=== PATIENT | female | born 2005 | race Caucasian/White ===

== ENCOUNTER 2024-11-21 13:30 | Outpatient (AMB) | payer OTHER, SELFPAY ==
--- NOTE | 2024-11-21 13:40 | A.OFFPC_ITS ---
Vital Signs 11/21/24 13:41 Height 5 ft 0.04 in Weight 127 lb 6 oz BMI 24.8 BP 100/60 Blood Pressure Location Lt brachial Position Sitting Pulse 116 H Pulse Source Pulse Oximeter Temp 98 F Temp Source Temporal Artery Scan Pulse Oximetry (%) 97 Oxygen Delivery Method Room Air Intake Visit Reasons: establish care Intake Note: Patient is a new patient here to establish care for Anxiety, Depression, Bipolar. Transferring care from [facility]. Medical records have been requested and have not received. Gizzard Skin Remover Required: No Compensation And Hris Analyst: Present Accompanied by: Friend Allergies No Known Allergies Allergy (Verified 11/21/24 14:23) Medication List - Last Reconciled 11/21/24 by Lashonda Davis PA-C buspirone 5 mg PO DAILY lamotrigine 100 mg PO DAILY lurasidone 20 mg PO DAILY mirtazapine 22.5 mg PO DAILY Tobacco use date assessed: 11/21/24 Dental Screening Dental Screen Date: 11/21/24 Did you have a dental visit in the last 12 months?: No Did you have a dental problem in the last 6 months where you did not have access to dental care?: No Was dental information given to patient?: No HPI establish care HPI Details 19-year-old female coming to the office for the 1st time. Presenting with influenza symptoms and dehydration risk. Reports feelings of extreme fatigue and dizziness without fainting and significant nausea in the last 24 hours, linking it to possible dehydration. Reports diarrhea for the last 24-48 hours and a sensation of excessive heat throughout her body. Reveals limited oral intake over the past day. [facility] Surgical History No pertinent past surgical history Family History Father Cancer Other Mental health disorder Substance use disorder Social History Housing: House Alcohol intake: never Patient Tobacco Use Status: Former Tobacco user (2023) e-Cigarette/Vaping Use: Former Use (2023) Second Hand Smoke Exposure: No service: No Current occupational status: student Cognitive needs: No Hearing needs: No Vision needs: Yes (Glasses) Questionnaire PHQ-9 Over the last 2 weeks, how often have you been bothered by any of the following problems? 1. Little interest or pleasure in doing things: more than half the days 2. Feeling down, depressed, or hopeless: more than half the days 3. Trouble falling or staying asleep, or sleeping too much: nearly every day 4. Feeling tired or having little energy: nearly every day 5. Poor appetite or overeating: nearly every day 6. Feeling bad about yourself - or that you are a failure or have let yourself or your family down: not at all 7. Trouble concentrating on things, such as reading the newspaper or watching television: not at all 8. Moving or speaking so slowly that other people could have noticed. Or the opposite - being so fidgety or restless that you have been moving around a lot more than usual: not at all 9. Thoughts that you would be better off or of hurting yourself in some way: not at all Total score: 13 Depression Screening Interpretation: Positive Depression Screening Done: Yes Source: Developed by Drs. Karl Calles, Citlali Hernandez, Hernandez Gregg and colleagues, with an educational anna from [employer]. Thrive Questionnaire Date Thrive assessed: 11/21/24 I am a: Patient What is your living situation today?: I have a steady place to live Within the past 12 months, did the food you bought not last and you didn't have the money to get more?: Never true Within the past 12 months, did you worry whether your food would run out before you got money to buy more?: Never true Do you have trouble paying for medicines?: No Do you have trouble getting transportation to medical appointments?: No Do you have trouble paying your heating and electricity bill?: No Do you have trouble taking care of your child, family member or friend?: No Do you have trouble with day-to-day activities such as bathing, preparing meals, shopping, managing finances, etc.?: No Are you currently unemployed and looking for a job?: No Are you interested in more education?: Yes Please select the resources that you would like help with: None Currently or been in a relationship where the following occur: No concerns reported THRIVE Score: 0 AUDIT C Alcohol Use Questionnaire (AUDIT-C) 1. How often do you have a drink containing alcohol?: Never Total Score: 0 MARK-7 AMB Questionnaire MARK-7 Date MARK - 7 assessed: 11/21/24 Feeling nervous, anxious, or on edge: 3 = Nearly every day Not being able to stop or control worryin = Nearly every day Worrying too much about different things: 3 = Nearly every day Trouble relaxin = Nearly every day Being so restless that it is hard to sit still: 1 = Several days Becoming easily annoyed or irritable: 3 = Nearly every day Feeling afraid as if something awful might happen: 3 = Nearly every day Total MARK-7 score (0-4 normal; 5-9 mild; 10-14 moderate; 15-21 severe): 19 Source: Developed by Drs. Karl Calles, Citlali Hernandez, Hernandez Gregg and colleagues, with an educational anna from [employer]. Review of Systems Const Reports body aches, Reports chills, Reports fever(s), Reports headache(s) and Denies poor appetite Eyes Reports no additional complaints ENT Denies dysphagia, Reports dizziness, Reports headache(s) and Denies odynophagia Card Denies chest pain, Denies syncope, Reports lightheadedness and Denies dyspnea Resp Denies cough and Denies dyspnea GI Denies abdominal pain, Denies constipation, Denies dysphagia, Reports diarrhea, Reports nausea, Denies odynophagia and Denies vomiting Reports no additional complaints Musc Reports no additional complaints and Denies abnormal gait Skin/Breast Reports system reviewed and no additional complaints, except as documented Neuro Denies abnormal gait, Reports dizziness, Denies syncope and Reports headache(s) Psych Reports no additional complaints Physical exam (Primary Care) Vital Signs: Last Vital Signs Temp 98 F 11/21/24 13:41 Pulse 116 H 11/21/24 13:41 BP 100/60 11/21/24 13:41 Pulse Ox 97 11/21/24 13:41 Oxygen Delivery Method Room Air 11/21/24 13:41 BMI result Body Mass Index 24.8 Tobacco/Smoking Status: Tobacco use Status Tobacco use date assessed 11/21/24 11/21/24 13:45 Patient Tobacco Use Status Former Tobacco user (2023) 11/21/24 13:55 e-Cigarette/Vaping Use Former Use (2023) 11/21/24 13:55 PHQ-9: PHQ-9 Score PHQ-9: Total score 13 11/21/24 13:41 Depression Screening Interpretation: Positive Thrive Assessment: Date of Thrive Assessment Date Thrive assessed 11/21/24 11/21/24 13:41 Currently or been in a relationship where the following occur: No concerns reported Const General: cooperative, healthy appearing, comfortable and no acute distress Orientation/consciousness: patient oriented x3 HENMT Head: Yes normocephalic Ears: hearing grossly normal bilaterally General nose exam: Normal external nose present Eyes General: appearance normal, both eyes and all related structures Conjunctivae: conjunctivae normal Neck Neck: Yes full ROM and Yes no lymphadenopathy Resp Effort & Inspection: normal respiratory effort Auscultation: clear to auscultation bilaterally, no crackles, no rales, no rhonchi and no wheezes Cardio Rate: regular rate Rhythm: regular rhythm Skin General skin exam: no rashes or lesions noted Neuro General: patient oriented x3 Gait exam (Neuro): Normal gait present Extrem General: Yes normal to inspection, Yes full ROM and No edema Psych Affect: normal affect Attitude: cooperative Insight: Good insight present (Psych) Judgement: Good judgement present (Psych) Coding Level of Care Code New Pt Level 4 (15867) Diagnoses Depression F32.A Anxiety F41.9 Influenza J11.1 Assessment & Plan Assessment & Plan (1) Depression: Code(s): F32.A - Depression, unspecified Category: Medical Plan: Patient on several medications for anxiety at this time. Plan to discuss further management symptomatology at next visit. (2) Anxiety: Code(s): F41.9 - Anxiety disorder, unspecified Category: Medical Plan: Patient on several medications for anxiety at this time. Plan to discuss further management symptomatology at next visit. (3) Influenza: Code(s): J11.1 - Influenza due to unidentified influenza virus with other respiratory manifestations Category: Medical Plan: The patient is advised for immediate evaluation in the emergency department due to potential dehydration resulting from influenza and associated symptoms. Intravenous fluids may be necessary given insufficient oral intake and ongoing nausea and diarrhea. A blood test for electrolyte imbalance is recommended. She was instructed to reschedule her appointment and provided with specific instructions for the emergency care process. Cautious use of Tylenol is advised, and she is encouraged to utilize nausea bags if needed. Arrangements will be made for rescheduling her initial appointment upon improvement of her acute condition. Plan I discussed with the patient today the need for emergency department evaluation as she is likely dehydrated. We will plan to reschedule the new patient visit as patient is feeling very weak and fatigued and would also like to reschedule at this time. This note was constructed using voice recognition software. While every effort has been made to ensure accuracy and plate mill mill hand, still areas may have been included sometimes these areas may affect the content or meeting of the given symptoms. Total time spent caring for the patient today was 30 minutes. This includes time spent before the visit reviewing the chart, time spent during the visit, and time spent after the visit and documentation. Patient was informed and verbally consented to the use of an ambient scribe for clinic note documentation during this visit.
[2024-11-21 13:41] VITALS: BP 100/60; PULSE 116; TEMP 36.6; O2SAT 97; BMI 24.8
--- OUTSIDE RECORDS SUMMARY | 2024-11-21 15:06 | XMS_ITS | Data Portability ---
Author Organization JUST[facility] [address] Address [address] [place] [address] Assessment No assessment recorded. Plan of Treatment Reminders Order Date Submit Date Provider Last Modified By Organization Details Last Modified Time Details Appointments None recorded. Lab None recorded. Referral None recorded. Procedures cerumen removal using irrigation (PROC) 2022 023 [email or web address] Not available 12:15:54 Surgeries None recorded. Imaging None recorded. Medication Orders None recorded. Patient TargetsNo targets recorded. Patient Instructions Encounter Date Encounter Id Patient Instructions Last Modified By Organization Details Last Modified Time 02/17/2023 [id number] earwax blockage: care instructions [email or web address] Not available 02/17/2023 18:25:49 You can take ove r the counter tylenol or ibuprofen per package instructions for the pain. See printed instructions. Follow-up with your doctor if no improvement in 1 week. Seek Emergency Medical evaluation for any worsening symptoms. [email or web address] Not available 02/17/2023 18:25:34 Reason for Referral None Reported. Problems Name Problem SNOMED Code Status Onset Date Resolution Date Notes Provider Name and Address Organization Details Recorded Time Depressive disorder 92782833 Active 023 TAMIACHERRI MCDONALDEY null, PA - [facility] 3 17:15:13 Bipolar disorder 58334707 Active 023 TAMIA PRAJAPATI null, PA - [facility] 3 17:15:18 Anxiety 33881600 Active 023 TAMIACHERRI MCDONALDEY null, PA - [facility] 3 17:15:27 Problem Notes None recorded. Procedures Surgical History Date Name Laterality Status Provider Name and Address Organization Details Recorded Time Cerumen Removal by Irrigation completed BEOB VELASCO [facility] [address] [facility] [address], [place] - [facility] 02/17/2023 18:24:55 Imaging Results None recorded. Procedure Notes None recorded. Medical Equipment None Reported. Allergies No known drug allergies Medications Name Sig Start Date Stop Date Status Note LastModified by Organization Details LastModified Time fluconazole 150 mg tablet 02/17 completed Not Available Not Available Not Available metronidazo le 500 mg tablet TAKE 1 TABLET BY MOUTH EVERY MORNING AND 1 TABLET EVERY EVENING. DO THIS FOR 7 DAYS 02/17 completed Not Available Not Available Not Available tretinoin 0.05 % topical cream APPLY A THIN FILM TO THE AFFECTED AREA ON FACE PRIOR TO BEDTIME EVERY NIGHT FOLLOW WITH MOISTURIZ ERT 02/17 completed Not Available Not Available Not Available sulfamethox azole 800 mg-trimetho prim 160 mg tablet TAKE 1 TABLET BY MOUTH TWICE DAILY FOR 7 DAYS 02/17 completed Not Available Not Available Not Available lamotrigine 25 mg tablet TAKE 1 TABLET BY MOUTH AT BEDTIME FOR 2 WEEKS THEN TAKE 1 TABLET BY MOUTH TWICE DAILY FOR 2 WEEKS THEN TAKE 2 TABLETS BY MOUTH TWICE DAILY active Not Available Not Available No t Available mirtazapine 30 mg tablet TAKE 1 TABLET BY MOUTH EVERY NIGHT 02/17 completed Not Available Not Available Not Available mupirocin 2 % topical ointment APPLY TOPICALLY TO THE AFFECTED AREA THREE TIMES DAILY FOR 7 DAYS 02/17 completed Not Available Not Available Not Available mirtazapine 15 mg tablet TAKE 1 TABLET BY MOUTH AT BEDTIME active Not Available Not Available No t Available lamotrigine 100 mg tablet TAKE 1 TABLET BY MOUTH EVERY NIGHT active Not Available Not Available No t Available mirtazapine 7.5 mg tablet TAKE 1 TABLET BY MOUTH AT BEDTIME 02/17 completed Not Available Not Available Not Available nitrofurant oin monohydrate /macrocryst als 100 mg capsule 02/17 completed Not Available Not Available Not Available lurasidone 20 mg tablet TAKE 1 TABLET BY MOUTH AT BEDTIME active Not Available Not Available No t Available Vitals Date Recorded Body height Body mass index (BMI) Body mass index (BMI) Percentile per age and sex Body weight Pain severity - 0-10 verbal numeric rating [Score] - Reported Respiratory rate Oxygen saturation Oxygen saturation in Arterial blood by Pulse oximetry Heart rate Body temperature Systolic blood pressure Diastolic blood pressure Provider Name and Address Organization Details Last Updated DateTime 3 152.4 cm 21.9 kg/m2 55 % 02456.3 5 g 1 16 /min 99 % 99 % 95 /min 99 [degF] 109 mm[Hg] 76 mm[Hg] TAMIA HORN - [facility] 17:17:32 Social History Question Answer Notes LastModified by Organizat ion Details LastModified Time Tobacco Smoking Status Current Some Day Smoker occasional TAMIA mak PA - [facility] 02/17/2023 17:16:02 What Is Your Level Of Alcohol Consumption? None Information not available 02/17/2023 Do You Or Have You Ever Used E-cigarettes Or Vape? Current User Of Electronic Cigarettes [email or web address] Information not available 02/17/2023 Do You Use Any Illicit Or Recreational Drugs? No [email or web address] Information not available 02/17/2023 Have You Recently Traveled Abroad? No [email or web address] Information not available 02/17/2023 Do You Or Have You Ever Used Any Other Forms Of Tobacco Or Nicotine? Yes [email or web address] Information not available 02/17/2023 Sex: Unknown Functional Status None recorded. Mental Status None recorded. Family History Relationship Description Onset Age of this Age Resolved Age Notes LastModified by Organization Details LastModified Time Father No current problems or disability Not available 02/17 17:15:46 Mother No current problems or disability [email or web address] Not available 02/17 17:15:46 Medical History No medical history recorded. Gynecological History Statement/Question Response Date of LMP Is there any chance of ? Unsure Obstetrics History GPAL:G 0 P 0 0 0 0 Past Encounters Encounter ID Performer Location Encounter Start Date Encounter Closed Date Diagnosis/Indication Diagnosis SNOMED-CT Code Diagnosis ICD10 Code Diagnosis Note [id number] [address] [facility] [address] [place] [address] 08/11/2019 14:38:32 08/11/2019 15:47:09 [id number] BEBO VELASCO MD [address] [facility] [address] [place] [address] 02/17/2023 11:00:35 02/17/2023 18:29:05 Decreased hearing 744140662 H91.91 Impacted c erumen in right ear 1184205115 455109 H61.21 Ear Wax Softener1. Colace Liquid for Ear Wax Softenin. Lie down on your side with the affected ear facing up,3. Put 1mL (about 20 drops) of liquid Colace into the ear,4. Let the liquid sit in the ear for 15 minutes so it can do its job.5. After the 15 minutes are up, rinse the affected ear with warm water (this is the irrigation part) so you can get the softened earwax out of your ear canal. You can use the blue bulb usually found in the baby section as a way to help rinse the ear. Ear Wax RemovalDeb darren Otic:Put 5-10 drops in affected ear canal twice daily; not to exceed use beyond 4 days.To lower the risk of dizziness, hold the container in your hand for a few minutes to warm it.To apply ear drops, wash your hands first. To avoid contaminat ion, do not touch the dropper tip or let it touch your ear or any other surface. Lie on your side or tilt the affected ear upward. Hold the dropper directly over the ear and place 5 to 10 drops into the ear canal. To help the drops roll into the ear of an adult, hold the earlobe up and back. In children, hold the earlobe down and back. Keep the head tilted for several minutes or insert a soft cotton plug in the ear. Health Concerns Section Related Observation LastModified by Organization Detai ls LastModified Time None Recorded Concern Status LastModified by Organization Details LastModified Time None Recorded Advance Directives Directive None Recorded Payers Encounter Date Sequence Insurance Name Policy Number Policy Collins Covered Member ID Collins Member ID Guarantor Name 08/11/2019 1 [facility] [id number] Karl Spencer [id number] Margaret Spencer 02/17/2023 1 [facility] [id number] Karl Spencer [id number] Margaret Spencer Notes Date Note Type Note Provider Name and Address Organization Details Recorded Time 02/17/2023 text/html Ear problem UCReported bypatient.Locatio n:right Quality:clogged;d ecreased hearing Severity:moderate Duration:1 weeks Context:no sick contacts; no recent swimming/water in ear;recent air travel Modifying Factors:does not hurt to lie on, or pull on ear BEBO VELASCO MD [address] [facility] [place], [address], [place] - [facility] 02/17/2023 18:26:29 OBGyn Episode No OBEpisode recorded.
--- OUTSIDE RECORDS SUMMARY | 2024-11-21 15:06 | XMS_ITS | Encounter Summary ---
Author Organization [facility] Address [address] [place] [address] Phone Care Team Providers Care Stock Holder Name Role Phone Clarissa Pastor NP Primary Care Provider [phone] Encounter Details Date Type Department Care Team (Late st Contact Info) Description 11/13/2013 Conversion Encounter [facility] [address] [place] [address] [place] [address] Social History Tobacco Use Types Packs/Day Years Used Date Smoking Tobacco: Never Assessed Comments Unknown Sex and Gender Information Value Date Recorded Sex Assigned at Not on file Legal Sex Female 6:12 PM EDT Gender Identity Female 07/14/2024 2:35 PM EST Sexual Orientation Straight 07/03/2019 3: 09 PM EDT documented as of this encounter Plan of Treatment Upcoming Encounters Date Type Department Care Team (Late st Contact Info) Description 03/18/2025 1:30 PM EDT Office Visit [facility] [address] [place] [address] [place] [address] Clarissa Pastor NP [address] [place] [address] [place] [address] documented as of this encounter Visit Diagnoses Not on filedocumented in this encounter Care Teams Stock Holder Relationship Specialty Start Date End Date Clarissa Pastor NP [address] [place] [address] [place] [address] PCP - General Pediatrics 4/16/21 documented as of this encounter
--- OUTSIDE RECORDS SUMMARY | 2024-11-21 15:06 | XMS_ITS | Encounter Summary ---
Author Organization [facility] Address [address] [place] [phone] Phone Care Team Providers Care Order Expediter Name Role Phone Clarissa Pastor NP Primary Care Provider Reason for Visit * Reason Comments Med Refill Encounter Details Date Type Department Care Team (Late st Contact Info) Description 01/07/2019 Refill [facility] [address] [place] [address] [place] [address] La Bronson DO Behavioral insomnia of childhood Social History Tobacco Use Types Packs/Day Years Used Date Smoking Tobacco: Never Comments:Never Smoker Alcohol Use Standard Drinks/Week Comments No 0 (1 standard drink = 0.6 oz pur e alcohol) Comments Unknown Sex and Gender Information Value Date Recorded Sex Assigned at Not on file Legal Sex Female 6:12 PM EDT Gender Identity Female 07/14/2024 2:35 PM EST Sexual Orientation Straight 07/03/2019 3: 09 PM EDT documented as of this encounter Miscellaneous Notes * Telephone Encounter - Hilda Gaffney MA - 01/07/2019 9:10 AM EDT ERROR documented in this encounter Plan of Treatment Upcoming Encounters Date Type Department Care Team (Late st Contact Info) Description 03/18/2025 1:30 PM EDT Office Visit [facility] [address] [place] [address] [place] [address] Clarissa Pastor NP [address] [facility] [place] [address] documented as of this encounter Visit Diagnoses Diagnosis Behavioral insomnia of childhood documented in this encounter Care Teams Order Expediter Relationship Specialty Start Date End Date Clarissa Pastor NP [facility] [facility] [place] [address] PCP - General Pediatrics 12/24/20 documented as of this encounter
--- OUTSIDE RECORDS SUMMARY | 2024-11-21 15:06 | XMS_ITS | Encounter Summary ---
Author Organization [facility] Address [address] [place] [address] Phone Care Team Providers Care Svp Digital Ad Sales Name Role Phone GonzaloClarissa russo TEE Primary Care Provider [phone] Reason for Visit * Reason Comments Med Refill Encounter Details Date Type Department Care Team (Late st Contact Info) Description 07/13/2020 Refill [facility] [address] [facility] [place] [address] La Bronson DO Behavioral insomnia of childhood Social History Tobacco Use Types Packs/Day Years Used Date Smoking Tobacco: Never Comments:Never Smoker Alcohol Use Standard Drinks/Week Comments No 0 (1 standard drink = 0.6 oz pur e alcohol) Comments No Sex and Gender Information Value Date Recorded Sex Assigned at Not on file Legal Sex Female 6:12 PM EDT Gender Identity Female 07/14/2024 2:35 PM EST Sexual Orientation Straight 07/03/2019 3: 09 PM EDT documented as of this encounter Miscellaneous Notes * Telephone Encounter - Cheri Grider MA - 07/14/2020 9:18 AM EST Last [facility] 07/03[facility]19 [facility] scheduled 08/13/2020 Per mom patient has not needed rx in awhile but has had some increased depression and is currently working with providers at [facility] but they are not able to prescribe. Mom is asking if you would refill trazdone for patient. documented in this encounter Plan of Treatment Upcoming Encounters Date Type Department Care Team (Late st Contact Info) Description 03/18/2025 1:30 PM EDT Office Visit [facility] [address] [place] [address] [place] [address] Clarissa Pastor NP [address] [place] [address] [place] [address] documented as of this encounter Visit Diagnoses Diagnosis Behavioral insomnia of childhood documented in this encounter Care Teams Svp Digital Ad Sales Relationship Specialty Start Date End Date Clarissa Patsor NP [address] [place] [address] [place] [address] PCP - General Pediatrics 12/24/20 documented as of this encounter
--- OUTSIDE RECORDS SUMMARY | 2024-11-21 15:06 | XMS_ITS | Encounter Summary ---
Author Organization [facility] Address [address] [place] [address] Phone Care Team Providers Care Senior Oracle Database Administrator Name Role Phone GonzaloClarissa russo TEE Primary Care Provider [phone] Reason for Visit * Reason Comments ED Admission Encounter Details Date Type Department Care Team (Late st Contact Info) Description 11/21/2024 2:12 PM EDT - Present Hospital Encounter [facility] - Patient Ping Social History Tobacco Use Types Packs/Day Years Used Date Smoking Tobacco: Never Comments:Never Smoker Alcohol Use Standard Drinks/Week Comments No 0 (1 standard drink = 0.6 oz pur e alcohol) Hunger/Food Answer Date Recorded In the last 12 months, did y ou or your family ever eat less than you felt you should because there wasn't enough money for food? No 03/17/2024 Stable Housing Answer Date Recorded Are you worried that in the next 2 months you may not have stable housing? No 03/17/2024 Transportation Concerns Answer Date Rec orded In the last 12 months, have you or your family ever had to go without healthcare because you didn't have a way to get there? No 03/17/2024 Hazards in Home Answer Date Recorded Think about the place you li ve. Do you have problems with any of the following? Pests (mice or roaches), mold, no/not working smoke detectors, water leaks, no window guards. No 2023 Financing Utilities Answer Date Recorde d In the last 12 months, has t he electric, gas, oil, or water company threatened to shut off your services in your home? No 03/17/2024 Safety at Home Answer Date Recorded Are you or your family worried about feeling saf e in your home? No 03/17/2024 Outside Support Answer Date Recorded Do you feel that you need mo re support from other people or programs to help you care for yourself or your family? No 03/17/2024 Understanding Health Concerns Answer Da te Recorded Do you need help understandi ng your or your child's healthcare needs (diagnosis, medications, plan, etc.)? No 03/17/2024 Financing Health Concerns Answer Date R ecorded In the last 12 months, was t here a time when your child needed to see a doctor or get medications or supplies but could not because of cost? No 03/17/2024 Missing School or Work Answer Date Bandar rded Did you or your child miss s chool or work because of a health problem that could have been avoided? No 03/17/2024 Child Education Answer Date Recorded Do you have concerns about y our/your child's learning or behavior in school, preschool, or daycare? No 03/17/2024 Comments Unknown Sex and Gender Information Value Date Recorded Sex Assigned at Not on file Legal Sex Female 6:12 PM EDT Gender Identity Female 07/14/2024 2:35 PM EST Sexual Orientation Straight 07/03/2019 3: 09 PM EDT documented as of this encounter Plan of Treatment Upcoming Encounters Date Type Department Care Team (Late st Contact Info) Description 03/18/2025 1:30 PM EDT Office Visit [facility] [address] [place] [address] [place] [address] Clarissa Pastor NP [address] [place] [address] [place] [address] documented as of this encounter Visit Diagnoses Not on filedocumented in this encounter Care Teams Senior Oracle Database Administrator Relationship Specialty Start Date End Date Clarissa Pastor NP [address] [place] [address] [place] [address] PCP - General Pediatrics 12/24/20 documented as of this encounter
--- OUTSIDE RECORDS SUMMARY | 2024-11-21 15:06 | XMS_ITS | Encounter Summary ---
Author Organization [facility] Address [address] [place] [address] Phone Care Team Providers Care Second Butler Name Role Phone GonzaloClarissa russo TEE Primary Care Provider Reason for Visit * Reason Comments Med Refill Encounter Details Date Type Department Care Team (Late st Contact Info) Description 01/03/2020 Refill [facility] [address] [place] [address] [place] [address] La Bronson DO Asthma, unspecified asthma severity, unspecified whether complicated, unspecified whether persistent Social History Tobacco Use Types Packs/Day Years [...] encounter Miscellaneous Notes * Telephone Encounter - La Bronson DO - 01/05/2020 11:59 AM EDT Now that she is 14 years old, the dose can be increased to 10 mg from 5 mg * Telephone Encounter - Hilda Gaffney MA - 01/05/2020 11:09 AM EDT Last pe with [facility] 07-03-19 MQ documented in this encounter Plan of Treatment Upcoming Encounters Date Type Department Care Team (Late st Contact Info) Description 03/18/2025 1:30 PM EDT Office Visit [facility] [address] [place] [address] [place] [address] Clarissa Pastor NP [address] [place] [address] [place] [address] documented as of this encounter Visit Diagnoses Diagnosis Asthma, unspecified asthma severity, unspecified whether complicated, unspecified whether persistent documented in this encounter Care Teams Second Butler Relationship Specialty Start Date End Date Clarissa Pastor NP [address] [place] [address] [place] [address] PCP - General Pediatrics 12/24/20 documented as of this encounter
--- OUTSIDE RECORDS SUMMARY | 2024-11-21 15:06 | XMS_ITS | Encounter Summary ---
Author Organization [facility] Address [address] [place] [phone] Phone Care Team Providers Care Color Tester Name Role Phone Clarissa Pastor TEE Primary Care Provider [phone] Reason for Visit * Reason Comments Med Refill Encounter Details Date Type Department Care Team (Late st Contact Info) Description 12/25/2018 Refill [facility] [address] [place] [address] [place] [address] Nav Lindsay MD [address] [place] [address] [place] [address] Asthma, unspecified asthma severity, unspecified whether complicated, [...] encounter Miscellaneous Notes * Telephone Encounter - Adelaide Dyer LPN - 12/25/2018 11:11 AM EDT Last [facility] 05/15/18 documented in this encounter Plan of Treatment Upcoming Encounters Date Type Department Care Team (Late st Contact Info) Description 03/18/2025 1:30 PM EDT Office Visit [facility] [address] [place] [address] [place] [address] Clarissa Pastor NP [address] [place] [address] [place] [address] documented as of this encounter Visit Diagnoses Diagnosis Asthma, unspecified asthma severity, unspecified whether complicated, unspecified whether persistent documented in this encounter Care Teams Color Tester Relationship Specialty Start Date End Date Clarissa Pastor NP [address] [place] [address] [place] [address] PCP - General Pediatrics 12/24/20 documented as of this encounter
--- OUTSIDE RECORDS SUMMARY | 2024-11-21 15:06 | XMS_ITS | Encounter Summary ---
Author Organization [facility] Address [address] [place] [address] Phone Care Team Providers Care Tripper Name Role Phone Clarissa Pastor NP Primary Care Provider [phone] Encounter Details Date Type Department Care Team (Late st Contact Info) Description 06/10/2024 Telephone [facility] [address] [facility] [place] [address] Clarissa Pastor NP [address] [facility] [place] [address] Social History Tobacco Use Types Packs/Day Years [...] encounter Miscellaneous Notes * Telephone Encounter - Steffany Garay - 06/10/2024 12:31 PM EDT Chance Romo, This patient is requesting the most recent health form which would be from 03/17/2024, Thank you! documented in this encounter Plan of Treatment Upcoming Encounters Date Type Department Care Team (Late st Contact Info) Description 03/18/2025 1:30 PM EDT Office Visit [facility] [address] [facility] [place] [address] Clarissa Pastor, LOFT WORKER [address] [facility] [place] [address] documented as of this encounter Visit Diagnoses Not on filedocumented in this encounter Care Teams Tripper Relationship Specialty Start Date End Date Clarissa Pastor NP [address] [facility] [place] [address] PCP - General Pediatrics 12/24/20 documented as of this encounter
--- OUTSIDE RECORDS SUMMARY | 2024-11-21 15:06 | XMS_ITS | Encounter Summary ---
Author Organization [facility] Address [address] [place] [address] Phone Care Team Providers Care Package Pick Up Name Role Phone Clarissa Pastor NP Primary Care Provider [phone] Reason for Visit * Reason Comments Med Refill Encounter Details Date Type Department Care Team (Late st Contact Info) Description 10/21/2018 Refill [facility] [address] [place] [address] [place] [address] La Bronson DO Social History Tobacco Use Types Packs/Day Years [...] Description 03/18/2025 1:30 PM EDT Office Visit [facility] [address] [place] [address] [place] [address] Clarissa Pastor NP [address] [place] [address] [place] [address] documented as of this encounter Visit Diagnoses Not on filedocumented in this encounter Care Teams Package Pick Up Relationship Specialty Start Date End Date Clarissa Pastor NP [address] [facility] [place] [address] PCP - General Pediatrics 12/24/20 documented as of this encounter
--- OUTSIDE RECORDS SUMMARY | 2024-11-21 15:06 | XMS_ITS | Encounter Summary ---
Author Organization [facility] Address [address] [place] [phone] Phone Care Team Providers Care Forest Fire Warden Name Role Phone Clarissa Pastor NP Primary Care Provider [phone] Reason for Visit * Reason Comments Med Refill Encounter Details Date Type Department Care Team (Late st Contact Info) Description 06/17/2018 Refill [facility] [address] [place] [address] [place] [address] La Bronson DO Social History Tobacco Use [...] Description 03/18/2025 1:30 PM EDT Office Visit [facility] [address] [place] [address] [place] [address] Clarissa Pastor NP [address] [place] [address] [place] [address] documented as of this encounter Visit Diagnoses Not on filedocumented in this encounter Care Teams Forest Fire Warden Relationship Specialty Start Date End Date Clarissa Pastor NP [address] [facility] [place] [address] PCP - General Pediatrics 12/24/20 documented as of this encounter
--- OUTSIDE RECORDS SUMMARY | 2024-11-21 15:07 | XMS_ITS | Clinical Summary ---
Author Organization [facility] Address [address] [place] [address] Phone Care Team Providers Care Fire Boss Name Role Phone GonzaloClarissa rsuso TEE Primary Care Provider [phone] Allergies Active Allergy Reactions Criticality Noted Date Comments Banana Food strawberry Gramineae Pollens 05/15/2018 Pear Pollen Extract 05/15/2018 Medications Latuda 20 MG tablet TAKE TABLET BY MOUTH DAILY 01/16/2022 Active MIRTAZAPINE PO Take 22.5 mg by mouth nightly. Active lamoTRIgine (LAMICTAL PO) Take 25 mg by mouth. She thinks she is taking 25 mg ,two tablets Active busPIRone 10 MG tablet 09/10/2023 Active busPIRone 5 MG tablet Take 5 mg by mouth 3 (three) times a day. 01/01/2024 Active Active Problems Problem Noted Date Diagnosed Date Nausea 03/18/2024 Assessment & Plan (03/18/2024 1:28 PM EDT): Nausea over the past couple of weeks No significant pain or vomiting Exam is reassuing Tolerating PO some, but admits some weight loss Will check some basic labs today Home tests negative, also IUD in place, so unlikely cause Concern this is body's reaction to grief and stress as she's going through quite a stressful time I strongly encourage she connect with her psychiatrist as there could be a possible med interaction Recommend 1 m f/u- pt says she will call if sx worsen or persist of parent 03/18/2024 Assessment & Plan (03/18/2024 1:27 PM EDT): Loss of both parents over the past year Seasonal allergic rhinitis 12/28/2021 Assessment & Plan (12/28/2021 2:06 PM EDT): Well controlled with zyrtec and flonase IUD (intrauterine device) in place 12/28/2021 Assessment & Plan (12/28/2021 2:09 PM EDT): Copper IUD, [facility] at [facility] Mood disorder 07/04/2019 Assessment & Plan (03/18/2024 1:25 PM EDT): Followed by psych provider No longer has therapist, but is very motivated to find another one Uses psychology today Suggest meeting with [facility] here in the interim, she will consider Assessment & Plan (01/24/2023 11:12 AM EDT): Followed by psych provider Assessment & Plan (12/28/2021 2:08 PM EDT): Followed by psych prescriber and therapist Currently taking mirtazapine Has tried numerous meds in the past to treat anxiety and depression Given her concerns and elevated PHQ9 score today, advise she f/u with med prescriber to discuss Hx of self harm, but denies any current thoughts or plans for self harm or SI Assessment & Plan (08/22/2020 7:26 AM EST): Is followed by a therapist. Has been on different medication and evaluated by [facility] in the past. She feels medication has not helped mood. Denies plan for self harm or SI currently at this time. Assessment & Plan (07/04/2019 4:19 PM EDT): Has tried 2 SSRIs without relief of symptoms. Was seen last month by Dr. Wayne at [facility] who recommended using Remeron and Atarax. Patient states symptoms have been worse on Remeron and dad also states worsening moods. Atarax has helped panic attacks. Have placed a call to Dr. Wayne to discuss case. Of note, does sometimes feel suicidal. Has talked to her therapist about these feelings. Discussed calling crisis if she feels that she would harm herself. Other acne 08/22/2017 Overview (05/19/2018): Acne (706.1) Onset: 08/22/2017 Added by: Kandis Feng Assessment & Plan (12/28/2021 2:06 PM EDT): Followed by derm Taking accutane Assessment & Plan (07/04/2019 4:19 PM EDT): Will be starting Accutane next month Allergy to other foods 07/10/2015 Overview (05/19/2018): Allergy to other foods (V15.05) Onset: 07/10/2015 Added by: Dana Berry Assessment & Plan (03/18/2024 1:25 PM EDT): Multiple food allergies Interested in allergy testing She can reach out to tank furnace operator to schedule appt for this Resolved Problems Problem Noted Date Diagnosed Date Resolved Date Anxiety 12/15/2018 07/04/2019 Encounters Date Type Department Care Team Description 11/21/2024 2:12 PM EDT - Present Hospital Encounter [facility] - Patient Ping from Last 3 Months Immunizations Immunization Administration Dates Next Due DTaP 5 03/08/2009, 6,2004,09/05,2004 HPV Vaccine 9 Valent 12/27/2021 Hep A, ped/adol 05/09/2017,08/10/2010 Hep B, ped/adol 2004,2004,2004 Hib (PRP-T) 09/18/2005, 5,2004,07/05 IPV 03/08/2009, 5,2004,07/05 Influenza, injectable, quadrivalent 06/18/2018 Influenza, injectable, quadr ivalent, preservative free 07/17/2022,06/23/2021,06/15/2020,07/03,05/09/2017,05/08/2016 Influenza, intranasal, quadrivalent 06/19/2015 Influenza, intranasal, trivalent 07/25/2014 MMR 03/08/2009,05/28/2005 Meningococcal Conj (Menactra) MCV4P 08/16/2020,0 05/08/2016 Pneumococcal Conjugate 05/28/2005,2004,2004,07/05 Tdap 05/08/2016 Varicella 03/08/2009,05/28/2005 Family History Medical History Relation Name Comments No Known Problems Father Guanaco No Known Problems Mother Pj Relation Name Status Comments Father Guanaco Alive Mother Pj Alive Social History Tobacco Use Types Packs/Day Years [...] Orientation Straight 07/03/2019 3: 09 PM EDT Last Filed Vital Signs Vital Sign Reading Time Taken Comments Blood Pressure 112/70 03/17/2024 12:59 PM EDT Pulse 72 01/24/2023 10:33 AM EDT Temperature 36.8 ??C (98.2 ??F) 03/17/2024 12:59 PM E DT Respiratory Rate - - Oxygen Saturation - - Inhaled Oxygen Concentration - - Weight 51 kg (112 lb 8 oz) 03/17/2024 12:59 PM E DT Height 153 cm (5' 0.24 ) 03/17/2024 12:59 PM EDT Body Mass Index 21.8 03/17/2024 12:59 PM EDT Plan of Treatment Upcoming Encounters Date Type Department Care Team (Late st Contact Info) Description 03/18/2025 1:30 PM EDT Office Visit [facility] [address] [place] [address] Clarissa Pastor NP [address] [place] [address] Health Maintenance Due Date Last Done Comments Hepatitis B Vaccines (4 of 4 - 4-dose series) 2004 2004, 2004, 2004 Men B Vaccine (1 of 2 - Standard) 2020 HPV Vaccines (2 - 3-dose series) 01/24/2022 12/28/19 LDL-C/Cholesterol 03/02/2022 Influenza Vaccines (#1) 2024 07/17/20 22, 06/23/2021, 06/15/2020, Additional history exists COVID-19 Vaccine (4 - 2023-2 5 season) 2024 09/13/2021, 01/25/2021, 01/03/2021 Chlamydia and Gonorrhea Screening 09/10/2024 01/24/2023, 12/22/2022, 06/05/2022, Additional history exists Glucose/HbA1C 03/19/2025 03/19/2024, 11/2018, 06/27/2016 DTaP,Tdap,and Td Vaccines (7 - Td or Tdap) 05/08/2026 05/08/2016, 03/08/2009, 09/18/2005, Additional history exists Pneumococcal Vaccine Completed 05/28/2005, 2004, 2004, Additional history exists HIB Vaccines Completed 09/18/2005, 04/2005, 2004, Additional history exists IPV Vaccines Completed 03/08/2009, 04/2005, 2004, Additional history exists MMR Vaccines Completed 03/08/2009, 05/28/2005 Varicella Vaccines Completed 03/08/2009, 05/28/2005 Hepatitis A Vaccines Completed 05/09/2017, 08/10/20 10 Meningococcal Vaccine Completed 08/16/2020, 016 HIV Screening Completed 12/22/2022 Hepatitis C Screening Completed 12/22/2022 Procedures * The patient is currently admitted. The information in this section might not be complete until the patient is discharged.Due to [place] state law, this organization might not be sharing sensitive test results. Procedure Name Priority Date/Time Associated Diagnosis Comments COMPREHENSIVE METABOLIC PANEL Routine 03/19/2024 12:56 PM EDT Nausea CHLAMYDIA AND GONORRHEA, AMPLIFIED Routine 01/24/2023 10:53 AM EDT Encounter for screening examination for sexually transmitted disease HEPATITIS C ANTIBODY WITH REFLEX TO HCV, RNA, QUANT, RT PCR Routine 12/22/2022 11:49 AM EDT Routine screening for STI (sexually transmitted infection) from Last 3 Months or Most Recently Relevant to Health Maintenance Results * Due to [place] state law, this organization might not be sharing sensitive test results. * (ABNORMAL) Comprehensive metabolic panel (03/19/2024 12:56 PM EDT) Glucose 99 70 - 99 mg/dL [facility] BUN, Fluid 8 6 - 20 mg/dL [facility] Creatinine 0.97 0.57 - 1.00 mg/dL [facility] BUN/Creatinine Ratio 8(L) 9 - 23 [facility] Sodium 141 134 - 144 mmol/L [facility] Potassium 3.9 3.5 - 5.2 mmol/L [facility] Chloride 103 96 - 106 mmol/L [facility] Carbon Dioxide 22 20 - 29 mmol/L [facility] Calcium 9.4 8.7 - 10.2 mg/dL [facility] Protein, Total 6.6 6.0 - 8.5 g/dL [facility] ALBUMIN 4.4 4.0 - 5.0 g/dL [facility] Globulin Total 2.2 1.5 - 4.5 g/dL [facility] Bilirubin, Total 0.5 0.0 - 1.2 mg/dL [facility] Alkaline Phosphatase 62 42 - 106 IU/L [facility] AST 16 0 - 40 IU/L [facility] ALT (SGPT) 7 0 - 32 IU/L [facility] Blood 03/19/2024 12:5 6 PM EDT 03/19/2024 Narrative [facility] - 03/20/2024 4:07 AM EDT Performed at: ??01 - [facility] [address] ??[id number] Reagent Tender Helper: Karen Strong MD, Phone: ??[phone] us Clarissa Pastor NP LAB BLOOD ORDERABLES Final Resul t [facility] [address] [place] [address] * Chlamydia and Gonorrhoea, Amplified (Urine) (01/24/2023 10:53 AM EDT) Chlamydia Trachomatis, DNA Probe NEGATIVE (NEG) [facility] Comment: No Chlamydia Trachomatis RNA detected in this patient's sample ? (REFERENCE RANGE/NORMAL VALUE: NOT DETECTED) ? Note: This test uses digital media specialist- mediated amplification method to detect rRNA from C. Trachomatis URINE GC AMP PROBE NEGATIVE (NEG) [facility] Comment: No Neisseria Gonorrhoeae RNA detected in this patient's sample ? (REFERENCE RANGE/NORMAL VALUE: NOT DETECTED) ? NOTE: This test uses digital media specialist-mediated amplification method to detect rRNA from N.Gonorrhoeae. A negative result does not preclude infection. In the case of a negative urine result, testing of an endocervical(female) or urethral (male) specimen is recommended if there is high clinical suspicion of infection. Due to very high sensitivity of Nucleic Acid Amplification Test, false positive results may occur. Therefore, specimen handling is extremely important. In patients in whom the disease is unlikely, additional sample for testing should be considered after an initial positive result. The performance characteristics of this test have not been evaluated in children. The Aptima Combo2 assay is not intended for the evaluation of suspected sexual abuse or for other medico-legal indications. The ordering provider should assess if the patient had consensual sex without risk of sexual abuse. Consult the [facility] if needed. Contact phone number . Therapeutic failure or success cannot be determined with the Aptima Combo2 assay since nucleic acid may persist following appropriate antimicrobial therapy. The Centers for Disease Control and Prevention (CDC) recommends confirmatory retesting using culture or a different nucleic acid amplification test when positive results occur, if indicated. Testing performed or reported by [facility], a Service of [facility], [address], [place] [address] Indio Pang MD, Pediatric Immunologist [facility]# [id number] Urine (Urine, Random (not clean void)) 01/24/2023 10:53 AM EDT 01/24/2023 5:25 PM EDT Clarissa Pastor NP LAB MICROBIOLOGY - GENERAL ORDER LUCIUS Final Result [facility] * Hepatitis C antibody (12/22/2022 11:49 AM EDT) Hepatitis C Ab Interpretation NEGATIVE (NEG) [facility] Comment: Reference range: Negative This test was performed on the [employer] immunoassay system. Testing performed or reported by [facility], a Service of [facility], [address] [place] [address] Indio Pang MD, Pediatric Immunologist [facility]# [id number] Blood (Blood, Venous) 12/22/2022 11:49 AM EDT 12/22/2022 6:17 PM EDT Clarissa Pastor NP LAB BLOOD ORDERABLES Final Resul t [facility] from Last 3 Months or Most Recently Relevant to Health Maintenance Insurance [employer] Care Teams Fire Boss Relationship Specialty Start Date End Date Clarissa Pastor NP [address] [place] [address] PCP - General Pediatrics 12/24/20
== END 2024-11-21 14:12 | disposition home or self-care (01) ==
LOC: HO.HMCH 13:30
PROVIDERS: PCP Pediatrics
DX: F32.A Depression, unspecified (principal); F41.9 Anxiety disorder, unspecified; J11.1 Influenza due to unidentified influenza virus with other respiratory manifestations

== ENCOUNTER → 2024-11-21 13:30 | Outpatient (BNVA) | payer OTHER, SELFPAY | PROVIDERS: PCP Pediatrics | DX: F32.A Depression, unspecified (principal); F41.9 Anxiety disorder, unspecified; J11.1 Influenza due to unidentified influenza virus with other respiratory manifestations | CPT/HCPCS: 99202 ==

== ENCOUNTER 2024-11-21 14:12 | Emergency (ER) | payer OTHER, SELFPAY ==
[2024-11-21 14:17] VITALS: BP 130/89; PULSE 105; RESP 16; TEMP 36.7; O2SAT 97; BMI 24.2
--- NOTE | 2024-11-21 14:20 | ED_ITS ---
HPI - General Adult General Chief complaint: Upper Respiratory Symptoms Stated complaint: Flu+ Time Seen by Provider: 11/21/24 15:36 Source: patient, RN notes reviewed and old records reviewed Mode of arrival: ambulatory Limitations: no limitations History of Present Illness ED Provider: Sander PATTEN narrative: Patient is a 19-year-old female with history of depression and anxiety, tested positive for flu A on Sunday, presenting from PCP office with concern for dehydration. Has been having diarrhea for the past 1-2 days. Nausea without vomiting. Decreased PO intake. Has had cough and subjective fevers. MD complaint: diarrhea Related Data Home Medications ?Medication ?Instructions ?Recorded ?Confirmed buspirone 5 mg tablet 5 mg PO DAILY 11/21/24 11/21/24 lamotrigine 100 mg tablet 100 mg PO DAILY 11/21/24 11/21/24 lurasidone 20 mg tablet 20 mg PO DAILY 11/21/24 11/21/24 mirtazapine 15 mg tablet 22.5 mg PO DAILY 11/21/24 11/21/24 Previous Rx's ?Medication ?Instructions ?Recorded ondansetron 4 mg disintegrating 4 mg PO Q8H PRN nausea and 11/21/24 tablet vomiting #10 tabs Allergies Allergy/AdvReac Type Severity Reaction Status Date / Time No Known Allergies Allergy Verified 11/21/24 14:23 Review of Systems 2 Review of Systems: As per HPI. Yes all other systems are reviewed and are negative Constitutional: Constitutional: Reports as per HPI PMF Past Medical History Surgical History No pertinent past surgical history Family History Family History Father Cancer Other Mental health disorder Substance use disorder Social History Social History Housing: House Alcohol intake: never Patient Tobacco Use Status: Former Tobacco user (2023) e-Cigarette/Vaping Use: Former Use (2023) Second Hand Smoke Exposure: No Advance Directives: No Advance Directives Information Provided: Yes Do you have a plan to hurt others: No Plan service: No Current occupational status: student Cognitive needs: No Hearing needs: No Vision needs: Yes (Glasses) Physical Exam ED Vital Signs: Vital Signs - 24 hr 11/21/24 14:17 11/21/24 15:44 Temperature 98.1 F 97.9 F Pulse Rate 105 H 88 Respiratory Rate 16 16 Blood Pressure 130/89 117/76 Pulse Oximetry 97 97 Oxygen Delivery Method Room Air Room Air BMI result Body Mass Index 24.2 Vital signs have been reviewed and appear to be correct. Blood pressure normal. Heart rate slightly tachycardic initially, improved without intervention while in the ED. Respiratory rate normal. Temperature normal. Oxygen saturation normal. Const General: cooperative, healthy appearing and no acute distress Orientation/consciousness: oriented to person, oriented to place, oriented to time and patient oriented x3 Limitations: no limitations HENMT Head: Yes normocephalic and Yes atraumatic Ears: external ears normal General nose exam: Normal external nose present Face and sinus: Yes face symmetric Mouth: oropharynx normal and moist mucous membranes Throat: Yes uvula midline Eyes Pupils: Equal, round and reactive pupils present Neck Neck: Yes normal visual inspection and Yes supple Resp Effort & Inspection: normal respiratory effort and able to speak in complete sentences Auscultation: clear to auscultation bilaterally Cardio Rate: regular rate Rhythm: regular rhythm Heart sounds: S1 normal heart sound present and S2 normal heart sound present GI Palpation (GI): Soft to palpation and nontender Auscultation: normoactive bowel sounds General: Yes no CVA tenderness Back/Spine/Pelvis Back: no CVA tenderness Skin General skin exam: elasticity normal and turgor normal Neuro General: oriented to person, oriented to place, oriented to time, patient oriented x3, moves all extremities, no focal motor deficits and CN's II-XI intact bilaterally Cranial nerves: Yes Equal, round and reactive pupils present Cognition (Neuro): normal cognition Extrem General: Yes full ROM, Yes no pedal edema and Yes no calf tenderness Psych Mental Status: mental status grossly normal Affect: normal affect Thought process: Normal thought process present Course Course Course Narrative: This is a rapid medical exam performed by Virginia Boucher NP: Additional HPI, ROS, PE not included below will be deferred to primary provider. Patient is a 19-year-old female, recently tested positive for flu on Sun, presenting from PCP office with complaint of weakness, diarrhea, nausea, poor PO intake. Plan: basic labs Medical Decision Making Medical Decision Making MDM Narrative: Patient is a 19-year-old female with history of depression and anxiety, tested positive for flu A on Sunday, presenting from PCP office with concern for dehydration. On exam patient is awake, A+Ox3, VS WNL, afebrile, normal neurological exam without focal deficits, physical exam findings as above. Given reported symptoms and physical exam findings, initial differential includes but is not limited to influenza, electrolyte abnormality, dehydration. Labs notable for no leukocytosis, no electrolyte abnormalities, no evidence of GILBERTO. Patient requesting to be discharged without IV fluids. Feel she is stable for discharge at this time. Will send prescription for Zofran, advised she can use [id number] Imodium as needed for diarrhea, encourage fluids with electrolytes. Follow up with PCP as needed. Return precautions discussed. Patient verbalized understanding of and agreement with plan. Differential Diagnosis Differential Diagnoses: The differential diagnosis associated with the presentation includes As per [facility] Lab Data [facility] Lab Attestation statement: I reviewed the patient's lab results. As per [facility] 11/21/24 15:02 11/21/24 15:02 Labs: Lab Results 11/21/24 Range/Units 15:02 WBC 3.9 L (4.8-10.8) X10*3/uL RBC 4.72 (4.20-5.50) X10*6/uL Hgb 15.1 (12.0-16.0) g/dl Hct 42.0 (37.0-47.0) % MCV 89.0 (80.0-98.0) fL MCH 32.0 (27.0-33.0) pg MCHC 36.0 H (31.0-35.0) g/dl RDW 12.1 (11.0-16.0) % Plt Count 166 (160-400) X10*3/uL MPV 9.3 L (9.4-12.3) fL Immature Gran % (Auto) 0.3 (0.0-0.4) % Neut % (Auto) 49.0 (45-73) % Lymph % (Auto) 34.3 (20-40) % [place] % (Auto) 12.2 H (2-11) % Eos % (Auto) 3.9 (0-4) % Baso % (Auto) 0.3 (0-2) % Lymph # (Auto) 1.3 (1.2-4.9) X10*3/uL [place] # (Auto) 0.5 (0.1-1.2) X10*3/uL Eos # (Auto) 0.2 (0.0-0.4) X10*3/uL Baso # (Auto) 0.0 (0.0-0.2) X10*3/uL Abs Immat Gran (auto) 0.01 (0.00-0.03) X10*3/uL Absolute Neuts (auto) 1.9 L (2.0-8.3) x10*3/uL Absolute Nucleated RBC 0.000 (0.0-0.012) X10*3/uL Nucleated RBC % (auto) 0.0 (0.0-0.2) /100WBC Sodium 141 (135-145) mmol/L Potassium 3.6 (3.3-5.1) mmol/L Chloride 106 (96-108) mmol/L Carbon Dioxide 27 (22-29) mmol/L Anion Gap 12 (12-20) BUN 8 L (9-16) mg/dL Creatinine 0.76 (0.5-1.4) mg/dL Estim Creat Clear Calc 96.6 Estimated GFR > 60 Random Glucose 87 (60-115) mg/dL Calcium 9.1 (8.4-10.2) mg/dL Magnesium 2.2 (1.6-2.6) mg/dL Total Bilirubin 0.3 (0.0-1.0) mg/dL AST 29 (5-31) U/L ALT 17 (0-31) U/L Total Protein 7.0 (6.5-8.0) g/dL Albumin 4.0 (3.5-5.0) g/dL Beta HCG, Quant < 2 mIU/mL External Record Review External record reviewed: Inpatient record, Office record and Outpatient record Prescription Management I considered prescription management with: Other Discharge Plan Discharge Clinical Impression: Influenza Patient Disposition: Home, Self-Care Instructions: Influenza (DC) Additional Instructions: You were evaluated in the emergency department today for possible dehydration. Your labs were reassuring. You requested discharge prior to administration of IV fluids. You are being prescribed ondansetron which you can take every 8 hours as needed for nausea and vomiting. You can use [id number] Imodium as needed for diarrhea. We recommend that you drink adequate fluids with electrolytes such as Pedialyte, Gatorade, etc.. Follow-up with your primary care provider as needed. Return to the emergency department if you are unable to tolerate fluids by mouth, have persistent vomiting, fever not improved with Tylenol or ibuprofen, or any other new or concerning symptoms. Prescriptions: New ondansetron 4 mg tablet,disintegrating 4 mg PO Q8H PRN (Reason: nausea and vomiting) Qty: 10 0RF No Action lurasidone 20 mg tablet 20 mg PO DAILY lamotrigine 100 mg tablet 100 mg PO DAILY mirtazapine 15 mg tablet 22.5 mg PO DAILY buspirone 5 mg tablet 5 mg PO DAILY Print Language: Hebrew
[2024-11-21 15:09] LABS: MANUAL DIFF FLAG NO
[2024-11-21 15:12] LABS: Basophils Percent Auto 0.3 % (0-2); Eosinophils Absolute Auto 0.2 X10*3/uL (0.0-0.4); Eosinophils Percent Auto 3.9 % (0-4); Hemoglobin 15.1 g/dl (12.0-16.0); Imm Gran Abs Auto 0.01 X10*3/uL (0.00-0.03); Imm Gran Pct Auto 0.3 % (0.0-0.4); Lymphocytes Absolute Auto 1.3 X10*3/uL (1.2-4.9); Lymphocytes Percent Auto 34.3 % (20-40); Mean Platelet Volume 9.3 fL (9.4-12.3); Monocytes Absolute Auto 0.5 X10*3/uL (0.1-1.2); Monocytes Percent Auto 12.2 % (2-11); Neutrophils Absolute Auto 1.9 x10*3/uL (2.0-8.3); Platelet Count 166 X10*3/uL (160-400); Red Blood Count 4.72 X10*6/uL (4.20-5.50); Red Cell Distribution Width 12.1 % (11.0-16.0); White Blood Count 3.9 X10*3/uL (4.8-10.8)
[2024-11-21 15:34] LABS: Alanine Aminotransferase 17 U/L (0-31); Anion Gap 12 (12-20); Aspartate Amino Transferase 29 U/L (5-31); Bilirubin Total 0.3 mg/dL (0.0-1.0); Blood Urea Nitrogen 8 mg/dL (9-16); Calcium 9.1 mg/dL (8.4-10.2); Carbon Dioxide 27 mmol/L (22-29); Chloride 106 mmol/L (96-108); Creatinine Clr Calc Pharmacy 96.6; Estimated Glomerular Filt Rate > 60; Glucose Random 87 mg/dL (60-115); Magnesium 2.2 mg/dL (1.6-2.6); Potassium 3.6 mmol/L (3.3-5.1); Sodium 141 mmol/L (135-145)
[2024-11-21 15:39] LABS: HCG Quantitative < 2 mIU/mL
[2024-11-21 15:44] VITALS: BP 117/76; PULSE 88; RESP 16; TEMP 36.6; O2SAT 97
[2024-11-21 16:13] VITALS: BP 117/76; PULSE 88; RESP 16; TEMP 36.6; O2SAT 97
[2024-11-21 16:15] LABS: Alkaline Phosphatase 62 U/L (39-117)
--- OUTSIDE RECORDS SUMMARY | 2024-11-21 16:21 | XMS_ITS | Encounter Summary ---
Author Organization [facility] Address [address] [place] [phone] Phone Care Team Providers Care Business Administration Program Chair Name Role Phone Clarissa Pastor NP Primary Care Provider [phone] Reason for Visit * Reason Comments Med Refill Encounter Details Date Type Department Care Team (Late st Contact Info) Description 10/21/2018 Refill [facility] [address] [place] [address] [place] [address] La Bronson DO Social History Tobacco Use [...] Description 03/18/2025 1:30 PM EDT Office Visit [facility] [address] [place] [address] [place] [address] Clarissa Pastor NP [address] [place] [address] [place] [address] documented as of this encounter Visit Diagnoses Not on filedocumented in this encounter Care Teams Business Administration Program Chair Relationship Specialty Start Date End Date Clarissa Pastor NP [address] [facility] [place] [address] PCP - General Pediatrics 12/24/20 documented as of this encounter
--- OUTSIDE RECORDS SUMMARY | 2024-11-21 16:21 | XMS_ITS | Encounter Summary ---
Author Organization [facility] Address [address] [place] [phone] Phone Care Team Providers Care Monitor Car Operator Name Role Phone Clarissa Pastor NP Primary Care Provider [phone] Reason for Visit * Reason Comments Med Refill Encounter Details Date Type Department Care Team (Late st Contact Info) Description 01/07/2019 Refill [facility] [address] [place] [address] [place] [address] La Bronson DO Behavioral insomnia of childhood [...] Description 03/18/2025 1:30 PM EDT Office Visit [facility] [address] [place] [address] [place] [address] Clarissa Pastor NP [address] [facility] [place] [address] documented as of this encounter Visit Diagnoses Diagnosis Behavioral insomnia of childhood documented in this encounter Care Teams Monitor Car Operator Relationship Specialty Start Date End Date Clarissa Pastor NP [facility] [facility] [place] [address] PCP - General Pediatrics 12/24/20 documented as of this encounter
--- OUTSIDE RECORDS SUMMARY | 2024-11-21 16:21 | XMS_ITS | Encounter Summary ---
Author Organization [facility] Address [address] [place] [address] Phone Care Team Providers Care Inspector Eyeglass Frames Name Role Phone GonzaloClarissa russo TEE Primary Care Provider [phone] Reason for Visit * Reason Comments Med Refill Encounter Details Date Type Department Care Team (Late st Contact Info) Description 01/03/2020 Refill [facility] [address] [place] [address] [place] [address] La Bronson DO Asthma, unspecified asthma severity, [...] Description 03/18/2025 1:30 PM EDT Office Visit [facility] [address] [place] [address] [place] [address] Clarissa Pastor NP [address] [place] [address] [place] [address] documented as of this encounter Visit Diagnoses Diagnosis Asthma, unspecified asthma severity, unspecified whether complicated, unspecified whether persistent documented in this encounter Care Teams Inspector Eyeglass Frames Relationship Specialty Start Date End Date Clarissa Pastor NP [address] [place] [address] [place] [address] PCP - General Pediatrics 12/24/20 documented as of this encounter
--- OUTSIDE RECORDS SUMMARY | 2024-11-21 16:21 | XMS_ITS | Encounter Summary ---
Author Organization [facility] Address [address] [place] [address] Phone Care Team Providers Care Director Energy Name Role Phone GonzaloClarissa russo TEE Primary Care Provider [phone] Reason for Visit * Reason Comments Med Refill Encounter Details Date Type Department Care Team (Late st Contact Info) Description 07/13/2020 Refill [facility] [address] [place] [place] [address] La Bronson DO Behavioral insomnia of childhood [...] MA - 07/14/2020 9:18 AM EST Last [facility] 07/03/19 [facility] scheduled 08/13/2020 Per mom patient has not needed rx in awhile but has had some increased depression and is currently working with providers at [facility] but they are not able to prescribe. Mom is asking if you would refill trazdone for patient. documented in this encounter Plan of Treatment Upcoming Encounters Date Type Department Care Team (Late st Contact Info) Description 03/18/2025 1:30 PM EDT Office Visit [facility] [address] [place] [address] [place] [address] Clarissa Pastor NP [address] [place] [address] [place] [address] documented as of this encounter Visit Diagnoses Diagnosis Behavioral insomnia of childhood documented in this encounter Care Teams Director Energy Relationship Specialty Start Date End Date Clarissa Pastor NP [address] [place] [address] [place] [address] PCP - General Pediatrics 12/24/20 documented as of this encounter
--- OUTSIDE RECORDS SUMMARY | 2024-11-21 16:21 | XMS_ITS | Encounter Summary ---
Author Organization [facility] Address [address] [place] [address] Phone Care Team Providers Care Salesperson Used Cars Name Role Phone Clarissa Pastor NP Primary Care Provider [phone] Reason for Visit * Reason Comments Med Refill Encounter Details Date Type Department Care Team (Late st Contact Info) Description 06/17/2018 Refill [facility] [address] [place] [address] [place] [address] La Bronson DO Social History Tobacco Use [...] Description 03/18/2025 1:30 PM EDT Office Visit [facility] [address] [place] [address] [place] [address] Clarissa Pastor NP [address] [place] [address] [place] [address] documented as of this encounter Visit Diagnoses Not on filedocumented in this encounter Care Teams Salesperson Used Cars Relationship Specialty Start Date End Date Clarissa Pastor NP [address] [place] [address] PCP - General Pediatrics 12/24/20 documented as of this encounter
--- OUTSIDE RECORDS SUMMARY | 2024-11-21 16:21 | XMS_ITS | Encounter Summary ---
Author Organization [facility] Address [address] [place] [address] Phone Care Team Providers Care Air Route Controller Name Role Phone Clarissa Pastor NP Primary Care Provider [phone] Encounter Details Date Type Department Care Team (Late st Contact Info) Description 06/10/2024 Telephone [facility] [address] [facility] [place] [address] Clarissa Pastor NP [address] [facility] [place] [address] Social History Tobacco Use Types Packs/Day Years [...] Description 03/18/2025 1:30 PM EDT Office Visit [facility] [address] [facility] [place] [address] Clarissa Pastor, INSURANCE CLERK [address] [facility] [place] [address] documented as of this encounter Visit Diagnoses Not on filedocumented in this encounter Care Teams Air Route Controller Relationship Specialty Start Date End Date Clarissa Pastor NP [address] [facility] [place] [address] PCP - General Pediatrics 12/24/20 documented as of this encounter
--- OUTSIDE RECORDS SUMMARY | 2024-11-21 16:21 | XMS_ITS | Encounter Summary ---
Author Organization [facility] Address [address] [place] [address] Phone Care Team Providers Care Cake Tester Name Role Phone Clarissa Pastor NP Primary Care Provider [phone] Encounter Details Date Type Department Care Team (Late st Contact Info) Description 11/13/2013 Conversion Encounter [facility] [address] [place] [address] [place] [address] Social History Tobacco Use Types Packs/Day Years [...] Description 03/18/2025 1:30 PM EDT Office Visit [facility] [address] [place] [address] [place] [address] Clarissa Pastor NP [address] [place] [address] [place] [address] documented as of this encounter Visit Diagnoses Not on filedocumented in this encounter Care Teams Cake Tester Relationship Specialty Start Date End Date Clarissa Pastor NP [address] [place] [address] [place] [address] PCP - General Pediatrics 4/16/21 documented as of this encounter
--- OUTSIDE RECORDS SUMMARY | 2024-11-21 16:21 | XMS_ITS | Clinical Summary ---
Author Organization [facility] Address [address] [place] [address] Phone Care Team Providers Care Paid Search Manager Name Role Phone GonzaloClarissa russo TEE Primary Care Provider [phone] Allergies Active Allergy Reactions Criticality Noted Date [...] one Uses psychology today Suggest meeting with [facility] here in the interim, she will consider [...] been on different medication and evaluated by [facility] in the past. She feels medication has not helped mood. Denies plan for self harm or SI currently at this time. Assessment & Plan (07/04/2019 4:19 PM EDT): Has tried 2 SSRIs without relief of symptoms. Was seen last month by Dr. Wayne at [facility] who recommended using Remeron and Atarax. Patient [...] allergy testing She can reach out to all round logger to schedule appt for this Resolved Problems Problem Noted Date Diagnosed Date Resolved Date Anxiety 12/15/2018 07/04/2019 Encounters Date Type Department Care Team Description 11/21/2024 2:12 PM EDT - 11/21/2024 4:14 PM EDT Hospital Encounter [facility] - Patient Ping from Last 3 Months [...] Description 03/18/2025 1:30 PM EDT Office Visit [facility] [address] [place] [address] Clarissa Pastor NP [address] [place] [address] Health Maintenance Due Date Last Done Comments Hepatitis B Vaccines (4 of 4 - 4-dose series) 2004 2004, 2004, 2004 Men B Vaccine (1 of 2 - Standard) 2020 HPV Vaccines (2 - 3-dose series) 01/24/2022 12/28/19 LDL-C/Cholesterol 03/02/2022 Influenza Vaccines (#1) 2024 07/17/20, 06/23/2021, 06/15/2020, Additional history exists COVID-19 Vaccine [...] Hepatitis C Screening Completed 12/22/2022 Procedures * Due to [place] state law, this organization might not be [...] to Health Maintenance Results * Due to [place] state law, this organization might not be [...] AM EDT Performed at: ??01 - [facility] [address] ??[id number] Glue Sprayer: Karen Strong MD, Phone: ??[phone] us Clarissa Pastor NP LAB BLOOD ORDERABLES Final Resul t [facility] [address] [place] [address] * Chlamydia and Gonorrhoea, Amplified (Urine) (01/24/2023 10:53 AM EDT) Chlamydia Trachomatis, DNA Probe NEGATIVE (NEG) [facility] Comment: No Chlamydia Trachomatis RNA detected in this patient's sample ? (REFERENCE RANGE/NORMAL VALUE: NOT DETECTED) ? Note: This test uses machine tool electrician- mediated amplification method to detect rRNA from C. Trachomatis URINE GC AMP PROBE NEGATIVE (NEG) [facility] Comment: No Neisseria Gonorrhoeae RNA detected in this patient's sample ? (REFERENCE RANGE/NORMAL VALUE: NOT DETECTED) ? NOTE: This test uses machine tool electrician-mediated amplification method to detect rRNA from N.Gonorrhoeae. [...] without risk of sexual abuse. Consult the [facility] if needed. Contact phone number . Therapeutic failure or success cannot be determined with the Aptima Combo2 assay since nucleic acid may persist following appropriate antimicrobial therapy. The Centers for Disease Control and Prevention (CDC) recommends confirmatory retesting using culture or a different nucleic acid amplification test when positive results occur, if indicated. Testing performed or reported by [facility], a Service of [facility], [address], [place] [address] Indio Pang MD, Practice Manager [facility]# [id number] Urine (Urine, Random (not clean void)) 01/24/2023 10:53 AM EDT 01/24/2023 5:25 PM EDT Clarissa Madara ARTS ADMINISTRATOR OR MANAGER LAB MICROBIOLOGY - GENERAL ORDER LUCIUS Final Result [facility] * Hepatitis C antibody (12/22/2022 11:49 AM EDT) Hepatitis C Ab Interpretation NEGATIVE (NEG) [facility] Comment: Reference range: Negative This test was performed on the [employer] Blade Grinder immunoassay system. Testing performed or reported by [facility], a Service of [facility], [facility] [place] [address] Indio Pang MD, Practice Manager [facility]# [id number] Blood (Blood, Venous) 12/22/2022 11:49 AM EDT 12/22/2022 6:17 PM EDT Clarissa Pastor NP LAB BLOOD ORDERABLES Final Resul t [facility] from Last 3 Months or Most Recently Relevant to Health Maintenance Insurance [facility] [employer] Care Teams Paid Search Manager Relationship Specialty Start Date End Date Clarissa Pastor NP [facility] [place] [address] PCP - General Pediatrics 12/24/20
--- OUTSIDE RECORDS SUMMARY | 2024-11-21 16:21 | XMS_ITS | Encounter Summary ---
Author Organization [facility] Address [address] [place] [address] Phone Care Team Providers Care Foreign Law Consultant Name Role Phone GonzaloClarissa russo TEE Primary Care Provider [phone] Reason for Visit * Reason Comments ED Admission Encounter Details Date Type Department Care Team (Late st Contact Info) Description 11/21/2024 2:12 PM EDT - 11/21/2024 4:14 PM EDT Hospital Encounter [facility] - Patient Ping Social History Tobacco [...] PM EDT documented as of this encounter Medications at Time of Discharge busPIRone 10 MG tablet 09/10/2023 busPIRone 5 MG tablet Take 5 mg by mouth 3 (three) times a day. 01/01/2024 lamoTRIgine (LAMICTAL PO) Take 25 mg by mouth. She thinks she is taking 25 mg ,two tablets Latuda 20 MG tablet TAKE TABLET BY MOUTH DAILY 01/16/2022 MIRTAZAPINE PO Take 22.5 mg by mouth nightly. documented as of this encounter Plan of Treatment Upcoming Encounters Date Type Department Care Team (Late st Contact Info) Description 03/18/2025 1:30 PM EDT Office Visit [facility] [address] [place] [address] Clarissa Pastor NP [address] [place] [address] documented as of this encounter Visit Diagnoses Not on filedocumented in this encounter Care Teams Foreign Law Consultant Relationship Specialty Start Date End Date Clarissa Pastor NP [address] [place] [address] PCP - General Pediatrics 12/24/20 documented as of this encounter
--- OUTSIDE RECORDS SUMMARY | 2024-11-21 16:21 | XMS_ITS | Encounter Summary ---
Author Organization [facility] Address [address] [place] [address] Phone Care Team Providers Care Hatch Tender Name Role Phone Clarissa Pastor TEE Primary Care Provider [phone] Reason for Visit * Reason Comments Med Refill Encounter Details Date Type Department Care Team (Late st Contact Info) Description 12/25/2018 Refill [facility] [address] [place] [address] [place] [address] Nav Lindsay MD [address] [place] [address] [place] [address] Asthma, unspecified asthma severity, unspecified whether complicated, [...] LPN - 12/25/2018 11:11 AM EDT [facility] documented in this encounter Plan of Treatment Upcoming Encounters Date Type Department Care Team (Late st Contact Info) Description 03/18/2025 1:30 PM EDT Office Visit [facility] [address] [place] [address] [place] [address] Clarissa Pastor NP [address] [place] [address] [place] [address] documented as of this encounter Visit Diagnoses Diagnosis Asthma, unspecified asthma severity, unspecified whether complicated, unspecified whether persistent documented in this encounter Care Teams Hatch Tender Relationship Specialty Start Date End Date Clarissa Pastor NP [address] [place] [address] [place] [address] PCP - General Pediatrics 12/24/20 documented as of this encounter
== END 2024-11-21 16:14 | disposition home or self-care (01) ==
PROVIDERS: Registered Nurse Emergency; Emergency Provider Emergency Medicine
DX: J10.1 Influenza due to other identified influenza virus with other respiratory manifestations (principal); R05.9 Cough, unspecified; F41.9 Anxiety disorder, unspecified; Z79.899 Other long term (current) drug therapy
CPT/HCPCS: 36415; 80053; 83735; 84702; 85025; 99282; 99283